=== PATIENT | male | born 1990 | race Caucasian/White ===

== ENCOUNTER 2020-02-27 22:27 | Emergency (ER) | payer SELFPAY ==
[~2020-02-27] VITALS: Ht 185.4 cm; Wt 87.0 kg
[2020-02-27 22:59] VITALS: BP 111/70
[2020-02-27 23:53] LABS: CHLORIDE 106 mEq/L (98-107)
[2020-02-27 23:57] LABS: BASOPHILS % 0.9 % (0.0-2.0); EOSINOPHILS % 1.7 % (0.0-5.0); ETHANOL BLOOD < 10 mg/dL; HEMATOCRIT. 37.9 % (42.0-52.0); HEMOGLOBIN. 13.1 g/dL (14.0-18.0); LYMPHOCYTES % 44.2 % (20.0-50.0); MEAN CORPUSCULAR HEMOGLOBIN 31.2 pg (28.0-32.0); MEAN CORPUSCULAR VOLUME 89.9 fL (80.0-94.0); MEAN PLATELET VOLUME 8.5 fl (7.4-10.4); MONOCYTES % 11.1 % (2.0-8.0); NEUTROPHILS % 42.1 % (40.0-76.0); PLATELET 186 x1000/uL (130-400); RED BLOOD CELL COUNT 4.22 mill/uL (4.7-6.1); RED CELL DISTRIBUTION WIDTH 13.8 % (11.6-14.6)
[2020-02-28] MEDS ORDERED: NALOXONE HCL 1 MG/ML 2ML VIAL IM ONE
[2020-02-28] MEDS ORDERED: ONDANSETRON HCL 4MG/2ML INJ IM ONE ×2
== END 2020-02-28 07:08 | disposition home or self-care (01) ==
LOC: ER 22:27
DX: T40.2X1A Poisoning by other opioids, accidental (unintentional), initial encounter (principal); G93.40 Encephalopathy, unspecified; L53.8 Other specified erythematous conditions; Y92.89 Other specified places as the place of occurrence of the external cause
CPT/HCPCS: 36415; 80053; 80320; 84484; 85025; 93005; 96372; 99284; J2310; J2405; G0480

== ENCOUNTER 2020-02-28 13:24 | Emergency (ER) | payer SELFPAY ==
[~2020-02-28] VITALS: Ht 177.8 cm; Wt 73.0 kg
[2020-02-28 13:26] VITALS: BP 147/89
[2020-02-28] MEDS ORDERED: SODIUM CHLORIDE 0.9% 1,000 ML IV ONE (15:00)
== END 2020-02-28 15:16 | disposition left against medical advice (07) ==
LOC: ER 14:14
DX: F19.10 Other psychoactive substance abuse, uncomplicated (principal); R42 Dizziness and giddiness; F41.9 Anxiety disorder, unspecified; Z98.890 Other specified postprocedural states; Z87.19 Personal history of other diseases of the digestive system
CPT/HCPCS: 93005; 99283